=== PATIENT | male | born 1975 | race Caucasian/White ===

== ENCOUNTER → 2024-05-04 | Outpatient (CLI) | payer BC, SELFPAY ==
[2024-05-04 08:16] LABS: Collection Type, Urine Clean Catch; Squamous Epithelial Cell,Urine 0 /hpf (0-5)
[2024-05-04 08:49] LABS: Bilirubin,Urine Negative (Negative); Blood,Urine Negative (Negative); Clarity,Urine Clear (Clear/Hazy); Color,Urine Lt-Yellow (Lt Yel-Yel); Culture Indicated,Urine Not Indicated; Glucose, Urine Negative (Negative); Ketones,Urine Negative (Negative); Leukocyte Esterase,Urine Negative (Negative); Nitrite,Urine Negative (Negative); Protein,Urine Negative (Neg - Trace); RBC,Urine 10 /hpf (0-3); Specific Gravity,Urine 1.022 (1.001-1.035); Urobilinogen,Urine Negative mg/dL (0.0-1.0); WBC,Urine 2 /hpf (0-5)
[2024-05-04 08:49] LABS: Basophils # (Auto) 0.1 Thou/mm3 (0.0-0.2); Basophils % (Auto) 1 % (0-2.5); Eosinophils # (Auto) 0.2 Thou/mm3 (0.0-0.5); Eosinophils % (Auto) 3 % (0-10); Hematocrit 42.9 % (41.0-53.0); Hemoglobin 14.4 g/dL (13.5-16.0); Immature Granulocytes % (Auto) 0 % (0-0); Immature Granulocytes Auto 0.02 Thou/mm3 (0.00-0.00); Lymphocytes # (Auto) 1.7 Thou/mm3 (1.0-4.8); Lymphocytes % (Auto) 26 % (10-50); Mean Corpuscular HGB Conc 33.6 g/dl (31.0-37.0); Mean Corpuscular Hemoglobin 30.3 pg (25.0-35.0); Mean Corpuscular Volume 90 fL (80-100); Monocytes # (Auto) 0.5 Thou/mm3 (0.0-0.8); Monocytes % (Auto) 8 % (0-12); Neutrophils # (Auto) 4.3 Thou/mm3 (1.8-7.7); Neutrophils % (Auto) 63 % (37-80); Nucleated Red Blood Cell % 0 /100 WBC (0); Platelet Count 244 Thou/mm3 (140-440); RDW Standard Deviation 40.1 fL (35.1-43.9); Red Blood Count 4.75 Miln/mm3 (4.50-5.90); White Blood Count 6.8 Thou/mm3 (3.8-10.6)
[2024-05-04 09:01] LABS: Prostate Specific Antigen 0.75 ng/mL (0-4.00)
[2024-05-04 09:08] LABS: Vitamin B12 604 pg/mL (211-911); Vitamin D 25 Hydroxy Total 35.9 ng/mL (7.3-40.2)
[2024-05-04 09:25] LABS: Alanine Aminotransferase 41 U/L (10-49); Albumin, Serum 4.7 gm/dL (3.5-5.0); Albumin/Globulin Ratio 1.9 (1.2-2.2); Alkaline Phosphatase 71 U/L (46-116); Anion Gap 5 (7-16); Aspartate Amino Transferase 22 U/L (0-34); BUN/Creatinine Ratio 20 Ratio (12-20); Bilirubin,Total 0.7 mg/dL (0.3-1.2); Blood Urea Nitrogen 20 mg/dL (9-23); Calcium 9.5 mg/dL (8.3-10.6); Calcium (Corrected) 9.5 mg/dL (8.5-10.1); Carbon Dioxide 27.1 mMol/L (20.0-31.0); Chloride 105 mMol/L (98-107); Cholesterol 201 mg/dL (132-200); Globulin 2.5 gm/dL (2.3-3.5); Glucose 101 mg/dL (74-106); HDL Cholesterol 40 mg/dL (40-60); LDL Cholesterol,Calculated 140 mg/dL (0-130); Osmolality,Calculated 276 (275-295); Potassium 4.3 mMol/L (3.4-5.1); Sodium 137 mMol/L (136-145); Thyroid Stimulating Hormone 1.48 uIU/mL (0.55-4.78); Total Protein 7.2 gm/dL (5.7-8.2); Triglycerides 103 mg/dL (30-150); eGFR > 60 See Note
[2024-05-14 06:40] LABS: Testosterone, Free,Dialysis 74.4 pg/mL (35.0-155.0); Testosterone, Total, Dialysis 486 ng/dL (250-1100)
== END | disposition home or self-care (01) ==
LOC: COPL 06:48
PROVIDERS: PCP Family Medicine; Referring Provider Physician Assistant; Visit Provider Physician Assistant
DX: Z00.00 Encounter for general adult medical examination without abnormal findings (principal); E55.9 Vitamin D deficiency, unspecified; E78.5 Hyperlipidemia, unspecified; I10 Essential (primary) hypertension
CPT/HCPCS: 36415; 80053; 80061; 81001; 82306; 82607; 84153; 84402; 84403; 84443; 85025

== ENCOUNTER → 2024-06-05 | Outpatient (CLI) | payer BC, SELFPAY ==
--- NOTE | 2024-06-05 14:30 | XR_ITS ---
Examination: CT abdomen and pelvis without contrast. Coronal 3-D reconstructions. Sagittal 2-D reconstructions. Date and time of exam:June 05, 2024 at 1440 hours INDICATIONS: Hematuria beginning 6 weeks ago, left upper abdomen left noticed beginning 20 years ago CTDI: vol (mGy): 11.8 DLP: (mGycm): 754 Technique: Axial images of the abdomen have been obtained, 3 mm slice thickness Intravenous contrast material has not been administered. Low dose protocols were performed. One or more of the following dose reduction techniques were used; automated exposure control, adjustment of the mA and/or KV according to patient size, use of iterative reconstruction technique. Findings: Minor atelectasis in the right middle lobe no focal liver or splenic lesions No gallstones No pancreatic or adrenal mass Mild to moderate bilateral parenchymal scar formation No renal or ureteral calculi, no hydronephrosis Aorta normal size 6 mm fat-containing umbilical hernia Absent appendix No bowel obstruction No diverticulitis Contracted urinary bladder, no bladder calculi Prostate is not enlarged Tiny fat-containing inguinal hernias Moderate disc narrowing posteriorly L5-S1 Mild narrowing hip joints IMPRESSION: Mild to moderate bilateral renal parenchymal scar formation No renal or ureteral calculi, no hydronephrosis Absent appendix No bladder mass or bladder calculi
== END | disposition home or self-care (01) ==
LOC: CCTX 14:10
PROVIDERS: PCP Family Medicine; Referring Provider Physician Assistant; Visit Provider Physician Assistant
DX: N28.89 Other specified disorders of kidney and ureter (principal)
CPT/HCPCS: 74176

== ENCOUNTER 2025-05-23 10:33 | Emergency (ER) | payer BC, SELFPAY ==
[2025-05-23 10:36] VITALS: PULSE 102; RESP 20; O2SAT 0
--- NOTE | 2025-05-23 10:38 | EKG_ITS ---
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
[2025-05-23 10:44] VITALS: BP 137/88; PULSE 91; RESP 16; TEMP 36.6; O2SAT 98
--- NOTE | 2025-05-23 12:35 | XR_ITS ---
EXAMINATION: AP chest single view TECHNIQUE: AP portable upright chest single view Date and time: May 23, 2025, 12:40 p.m., comparison August 11, 2021 INDICATIONS: Coughing today. FINDINGS: Minimal prominence left ventricle No pneumonia or pulmonary edema Mild osteopenia IMPRESSION: No pneumonia identified
[2025-05-23 13:07] LABS: Basophils # (Auto) 0.1 Thou/mm3 (0.0-0.2); Basophils % (Auto) 1 % (0-2.5); Eosinophils # (Auto) 0.0 Thou/mm3 (0.0-0.5); Eosinophils % (Auto) 0 % (0-10); Hematocrit 45.7 % (41.0-53.0); Hemoglobin 15.2 g/dL (13.5-16.0); Immature Granulocytes Auto 0.03 Thou/mm3 (0.00-0.00); Lymphocytes # (Auto) 1.8 Thou/mm3 (1.0-4.8); Lymphocytes % (Auto) 18 % (10-50); Mean Corpuscular HGB Conc 33.3 g/dl (31.0-37.0); Mean Corpuscular Hemoglobin 29.6 pg (25.0-35.0); Mean Corpuscular Volume 89 fL (80-100); Monocytes # (Auto) 0.7 Thou/mm3 (0.0-0.8); Monocytes % (Auto) 6 % (0-12); Neutrophils # (Auto) 7.6 Thou/mm3 (1.8-7.7); Neutrophils % (Auto) 75 % (37-80); Nucleated Red Blood Cell # 0.00 Thou/mm3 (0.00-0.00); Nucleated Red Blood Cell % 0 /100 WBC (0); Platelet Count 226 Thou/mm3 (140-440); RDW Standard Deviation 42.1 fL (35.1-43.9); Red Blood Count 5.14 Miln/mm3 (4.50-5.90); White Blood Count 10.2 Thou/mm3 (3.8-10.6)
[2025-05-23 13:22] LABS: INR 1.0 (0.9-1.3); Partial Thromboplastin Time 28.7 Seconds (22.0-36.0); Prothrombin Time 10.5 Seconds (9.0-12.2)
[2025-05-23 13:26] LABS: Alanine Aminotransferase 26 U/L (10-49); Albumin, Serum 4.9 gm/dL (3.5-5.0); Albumin/Globulin Ratio 1.7 (1.2-2.2); Alkaline Phosphatase 74 U/L (46-116); Anion Gap 8 (7-16); Aspartate Amino Transferase 21 U/L (0-34); BUN/Creatinine Ratio 19 Ratio (12-20); Bilirubin,Total 0.4 mg/dL (0.3-1.2); Blood Urea Nitrogen 19 mg/dL (9-23); Calcium 9.5 mg/dL (8.3-10.6); Calcium (Corrected) 9.5 mg/dL (8.5-10.1); Carbon Dioxide 28.6 mMol/L (20.0-31.0); Chloride 103 mMol/L (98-107); Creatinine (Component) 1.0 mg/dL (0.6-1.3); Globulin 2.9 gm/dL (2.3-3.5); Glucose 102 mg/dL (74-106); Osmolality,Calculated 281 (275-295); Potassium 4.6 mMol/L (3.4-5.1); Sodium 140 mMol/L (136-145); Total Protein 7.8 gm/dL (5.7-8.2); Troponin I < 0.020 ng/mL (0.0-0.045); eGFR > 60 See Note
[2025-05-23 14:35] VITALS: BP 125/84; PULSE 82; RESP 14; TEMP 36.6; O2SAT 98
[2025-05-23 15:09] LABS: Collection Type, Urine Clean Catch
--- NOTE | 2025-05-23 15:09 | EDNOTE_ITS ---
ED Arrhythmia Palp. RME/HPI General Chief Complaint: Arrhythmia/Palpitations Stated Complaint: PALPITATIONS Time Seen by Provider: 05/23/25 10:46 Arrival date/time: 05/23/25 10:33 Limitations: no limitations RME / HPI RME / HPI narrative: 50 year old male with remote history of atrial fibrillation (episode occurred on 03/09/2024) otherwise healthy, not currently on any medications, presents to the ED BIBA from home for evaluation of palpitations today. States at about 09:50 AM he was sitting on the cough playing with granddaughter when suddenly began to feel lightheaded and heart racing. During that time HR was in the 160s that improved after applying ice to his neck. Patient states he was not worried or feeling anxious prior to episode of elevated heart rate. No other associated symptoms reported. Patient reports remote history of atrial fibrillation. Reportedly on 03/09/2024 he was evaluated at [facility] emergency room for elevated HR and during that time HR 220s and told he was in atrial fibrillation. States he was electrically cardioverted and given medications and discharged home. States after that episode he was prescribed a blood thinner which he took for several months. 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 States he is currently not on any medications. Related Data Previous Rx's ?Medication ?Instructions ?Recorded hydroxyzine HCl 50 mg tablet 50 mg PO QID PRN anxiety #20 tabs 04/23/19 Allergies Allergy/AdvReac Type Severity Reaction Status Date / Time No Known Allergies Allergy Verified 04/23/19 00:58 Review of Systems Review of Systems Systems Reviewed: All systems reviewed, normal except as documented Past Medical History Past Medical History PSYCHO/SOCIAL: Positive Anxiety (anxiety attack before no meds) Social History SMOKING STATUS: Never smoker ED Exam General Limitations: Present no limitations General appearance: Present alert and in no apparent distress Head Head exam: Present atraumatic Eye Eye exam: Present normal appearance, PERRL and EOMI ENT ENT exam: Present normal exam, normal oropharynx and mucous membranes moist Neck Neck exam: Present normal inspection, full ROM and trachea midline Chest Chest inspection: Present normal inspection and symmetric chest wall rise Respiratory Respiratory exam: Present normal lung sounds bilaterally Cardiovascular Cardiovascular exam: Present regular rate, normal rhythm and normal heart sounds Abdominal Exam Abdominal exam: Present soft and normal bowel sounds Extremities Exam Extremities exam: Present normal inspection and full ROM Back Exam Back exam: Present normal inspection and full ROM Neurological Exam Neurological exam: Present alert, oriented X3 and CN II-XII intact Psychiatric Psychiatric exam: Present normal affect and normal mood Skin Skin exam: Present warm, dry, intact and normal color Course Quality Measures none Orders Category Date Time Status Hazmat Cdl Driver NOW Care 05/23/25 12:35 Active Continuous Pulse Oximetry NOW Care 05/23/25 12:35 Active EKG (ED ONLY) *Do not use* NOW Care 05/23/25 10:39 Completed Insert IV NOW Care 05/23/25 12:35 Active EKG (ED Only) Stat Exams 05/23/25 10:38 Draft XR chest 1V portable Stat Exams 05/23/25 12:35 Completed CBC Stat Lab 05/23/25 12:56 Completed Comprehensive Metabolic Panel Stat Lab 05/23/25 12:56 Completed Partial Thromboplastin Time Stat Lab 05/23/25 12:56 Completed Prothrombin Time with INR Stat Lab 05/23/25 12:56 Completed Troponin I Stat Lab 05/23/25 12:56 Completed Urinalysis Stat Lab 05/23/25 14:51 Received Metoprolol Tartrate Inj [Lopressor Inj] Med 05/23/25 12:35 Discontinued 5 mg IVP X1 ONE Sodium Chloride 0.9% 1000 ml [Ns] 1,000 ml Med 05/23/25 12:34 Active IV 100 mls/hr Vital Signs Vital signs: Vital Signs Temperature 97.9 F 05/23/25 10:44 Pulse Rate 91 05/23/25 10:44 Respiratory Rate 16 05/23/25 10:44 Blood Pressure 137/88 H 05/23/25 10:44 Pulse Oximetry (%) 98 05/23/25 10:44 Oxygen Delivery Method Room Air 05/23/25 10:44 Arrhythmia/Palpitations MDM Narrative MDM Narrative:: Catina Gonsales am scribing for and in the presence of Dr. Mcdaniels. Patient data External records reviewed:: [facility] previous records and EMS form Clinical information provided by:: patient, EMS and family Social determinants that could affect healthcare access:: none Patient has the following chronic illnesses:: remote history of atrial fibrillation (episode occurred on 03/09/2024) otherwise healthy, not currently on any medications How is presenting disease/condition affected by chronic disease/condition?: uneffected by Evaluation data The following diagnostics were reviewed and interpreted by me:: lab results, radiology exam(s) and EKG tracing(s) (EKG @ 10:38 AM, interpreted by me, normal sinus rhythm, rate 84, no STEMI. ) Lab and/or radiology exams considered but not ordered:: None Interpretation Summary: Ordering Physician: Boris Mcdaniels MD Date of Service: 05/23/25 Procedure(s): XR chest 1V portable Accession Number(s): [id number] cc: Boris Mcdaniels MD; Kulwant Kong MD; Karen Durbin MD~ EXAMINATION: AP chest single view TECHNIQUE: AP portable upright chest single view Date and time: May 23, 2025, 12:40 p.m., comparison August 11, 2021 INDICATIONS: Coughing today. FINDINGS: Minimal prominence left ventricle No pneumonia or pulmonary edema Mild osteopenia IMPRESSION: No pneumonia identified Dictated By: Kulwant Kong MD Signed By: <Electronically signed by Kulwant Kong MD in OV> 05/23/25 1251 Medications / Prescriptions Medications or Prescriptions considered but not ordered:: None Medication administrations:: Medication Administration History Sodium Chloride (Ns) 1,000 mls @ 100 mls/hr IV .Q10H ONE Stop: 05/23/25 22:33 Last Admin: 05/23/25 13:53 Dose: Not Given Documented By: DB Non-Admin Reason: Cancelled by Provider Discontinued Medications Metoprolol Tartrate (Metoprolol Tartrate Inj 1 Mg/Ml Vial 5 Ml) 5 mg IVP X1 ONE Stop: 05/23/25 12:36 Last Admin: 05/23/25 12:58 Dose: Not Given Documented By: DB Non-Admin Reason: Change of Condition Comments: PER CASSIDY CARO GIVE Consultations Consultation(s) initiated? (list below): No Diagnosis Most likely diagnosis given after review of the tests above:: Palpitations Admission Indicated Admission indicated?: not indicated Admission Request Was there a request for admission?: No Disposition Plan Disposition Plan: Discharge Discharge Attestation Discharge Attestation: The patient and all family members were given an opportunity to ask questions and understood the discharge instructions. Discharge instructions specifically effects, indications for sooner follow up or return to the emergency department, and the expected course of current diagnosis. Patient condition: Stable Discharge Plan Plan Patient Disposition: HOME (Self Care) Patient condition on transfer: Stable Prescriptions/Referrals Prescriptions/Med Rec: No Action hydroxyzine HCl 50 mg tablet 50 mg PO QID PRN (Reason: anxiety) Qty: 20 0RF Referrals: Karen Durbin MD [Primary Care Provider, Family Practice] - In 1 week Problem List Clinical Impression: Palpitations Patient/Caregiver Discharge Instructions Discharge Activity: activity as tolerated Additional Instructions: Rest for 1 to 2 days. Please make an appointment with your primary care doctor or airfield defence guard for early next week preferably Tuesday. Return to the ER for any concerns. Print Language: Bahraini Stand Alone Forms: [employer] Award Info., Patient Portal Info Letter
[2025-05-23 15:14] LABS: Bilirubin,Urine Negative (Negative); Blood,Urine Negative (Negative); Clarity,Urine Clear (Clear/Hazy); Color,Urine Colorless (Lt Yel-Yel); Glucose, Urine Negative (Negative); Ketones,Urine Negative (Negative); Leukocyte Esterase,Urine Negative (Negative); Nitrite,Urine Negative (Negative); PH,Urine 6.5 (5.0-7.0); Protein,Urine Negative (Neg - Trace); RBC,Urine < 1 /hpf (0-3); Specific Gravity,Urine 1.008 (1.001-1.035); Squamous Epithelial Cell,Urine < 1 /hpf (0-5); Urobilinogen,Urine Negative mg/dL (0.0-1.0); WBC,Urine < 1 /hpf (0-5)
== END 2025-05-23 15:10 | disposition home or self-care (01) ==
PROVIDERS: Emergency Provider Family Medicine; PCP Family Medicine
DX: R00.2 Palpitations (principal); R05.9 Cough, unspecified
CPT/HCPCS: 36415; 71045; 80053; 81001; 84484; 85025; 85610; 85730; 93005; 99283